=== PATIENT | female | born 1990 | race Caucasian/White ===

== ENCOUNTER 2018-01-30 09:43 | Emergency (ER) | payer OTHER ==
[2018-01-30 09:57] VITALS: BP 115/79
--- NOTE | 2018-01-30 10:49 | UC ---
Natali Chaves Jade, scribed for Yury Benavidez MD on 01/30/18 at 1013 . Complaint Female HPI - HPI Summary HPI Summary: Patient is a 27 y/o female who presents to [facility] c/o vaginal bleeding. She states the symptoms began 2 days ago, and include abdominal bloating/cramping, vaginal bleeding, and blood-tinged urine. Patient has had an IUD in place for 2 months, and her LKMP was approximately 1 month ago. She had a positive test at home, so is concerned about . The pain is described as a 6/10 in severity, and she states that medications make the pain better. Patient declined a pelvic exam because she is going to the ED. - History Of Current Complaint Chief Complaint: UCAbdominalPain Stated Complaint: VAGINAL BLEEDING Time Seen by Provider: 01/30/18 09:53 Hx Obtained From: Patient Hx Last Menstrual Period: last month Onset/Duration: Gradual Onset, Lasting Days - 2, Still Present Timing: Constant Severity Currently: Moderate Pain Intensity: 6 Pain Scale Used: 0-10 Numeric Character: Cramping Aggravating Factor(s): Nothing Alleviating Factor(s): Meds Associated Signs And Symptoms: Positive: Vaginal Bleeding/Discharge - Bleeding - Allergies/Home Medications Allergies/Adverse Reactions: Allergies Allergy/AdvReac Type Severity Reaction Status Date / Time No Known Allergies Allergy Verified 01/30/18 09:58 Home Medications: Home Medications Topiramate TAB(*) [Topamax 25 MG tab] 50 mg PO DAILY 01/30/18 [History Confirmed 01/30/18] PMH/Surg Hx/FS Hx/Imm Hx Endocrine History: Other Other Endocrine History: NEGATIVE: diabetes Cardiovascular History: Other Other Cardiovascular History: NEGATIVE: HTN - Surgical History Surgical History: Yes Surgery Procedure, Year, and Place: clavical repair - Family History Known Family History: Positive: Hypertension - Social History Alcohol Use: Occasionally Substance Use Type: Marijuana Smoking Status (MU): Never Smoked Tobacco Review of Systems Gastrointestinal: Abdominal Pain - Bloating, cramping Genitourinary: Hematuria, Abnormal Bleeding - Vaginal All Other Systems Reviewed And Are Negative: Yes Physical Exam - Summary Physical Exam Summary: VITAL SIGNS: Reviewed. GENERAL: Patient is a well-developed and nourished female who is lying comfortable in the stretcher. Patient is not in any acute respiratory distress. HEAD AND FACE: Normocephalic and atraumatic. EYES: PERRLA, EOMI x 2, No injected conjunctiva. EARS: Hearing grossly intact. Ear canals and tympanic membranes are WNL. MOUTH: Oropharynx within normal limits. NECK: Supple, trachea is midline, no adenopathy, no JVD. CHEST: Symmetric, no tenderness at palpation LUNGS: Clear to auscultation bilaterally. No wheezing or crackles. CVS: RRR, S1 and S2 present, no murmurs or gallops appreciated. ABDOMEN: Soft, non-tender. No signs of distention. Positive bowel sounds. No rebound no guarding, and no masses palpated. No abdominal bruit or pulsations. EXTREMITIES: FROM in all major joints, no edema, no cyanosis or clubbing. NEURO: Alert and oriented x 3. No acute neurological deficits. Speech is normal. SKIN: Dry and warm Triage Information Reviewed: Yes Vital Signs: Initial Vital Signs Temp 99 F 01/30/18 09:51 Pulse 88 01/30/18 09:51 Resp 18 01/30/18 09:51 BP 115/79 01/30/18 09:51 Pulse Ox 100 01/30/18 09:51 Vital Signs Reviewed: Yes Complaint Female Dx - Course Course Of Treatment: This patient presents to the urgent care with a chief complaint of vaginal bleeding. She reports that she is having vaginal bleeding , abdominal cramping, abdominal bloating and not feeling well. This morning she took a test and it was positive. She reports that she has an IUD for the last 2 months however, the test was positive. Patient declined a test since she already had one she prefers to do a blood test. Patient also declined pelvic exam, since the patient is going to the ER from ultrasound she reports that she wants to get only 1 pelvic exam and likely in the emergency department. Patient will be discharged to the emergency department. The patient declined ambulance transfer. - Differential Dx/Diagnosis Provider Diagnoses: Vaginal bleeding and . Abdominal pain. Discharge - Sign-Out/Discharge Documenting (check all that apply): Discharge/Admit/Transfer - Discharge Plan Condition: Stable Disposition: HOME Patient Education Materials: (ED), Acute Abdominal Pain (ED) Referrals: No Primary Care Phys,NOPCP [Primary Care Provider] - Additional Instructions: Patient will be discharged to the ED for further assessment. Patient declined ambulance - Billing Disposition and Condition Condition: STABLE Disposition: Home The documentation as recorded by the Natali jaramillo Jade accurately reflects the service I personally performed and the decisions made by , Yury Benavidez MD.
== END 2018-01-30 10:22 | disposition home or self-care (01) ==
LOC: UCEAST 09:43
DX: O46.90 Antepartum hemorrhage, unspecified, unspecified trimester (principal); O26.899 Other specified pregnancy related conditions, unspecified trimester; N93.9 Abnormal uterine and vaginal bleeding, unspecified; R10.9 Unspecified abdominal pain
CPT/HCPCS: 99201; G0463

== ENCOUNTER 2018-01-30 11:23 | Emergency (ER) | payer OTHER ==
[2018-01-30 11:53] LABS: ABS Basophils 0.1 10^3/ul (0-0.2); ABS Eosinophils 0.1 10^3/ul (0-0.6); ABS Lymphocytes 1.8 10^3/ul (1.0-4.8); ABS Monocytes 0.5 10^3/ul (0-0.8); ABS Neutrophils 3.8 10^3/ul (1.5-7.7); ABS Nucleated RBC 0 10^3/ul; Eosinophil % 1.8 % (0-6); Hematocrit 39 % (35-47); Lymphocyte % 28.2 % (25-47); Mean Corpuscular HGB Conc 34 g/dl (31-36); Mean Corpuscular Hemoglobin 30 pg (27-31); Mean Corpuscular Volume 90 fL (80-97); Mean Platelet Volume 9.6 um3 (7.4-10.4); Nucleated Red Blood Cells % 0.1; Platelet Count 237 10^3/ul (150-450); Red Blood Count 4.32 10^6/ul (4.00-5.40); Red Cell Distribution Width 14 % (10.5-15); White Blood Count 6.3 10^3/ul (3.5-10.8)
[2018-01-30 12:06] LABS: Urine Appearance Clear; Urine Blood 3+ (Negative); Urine Color Straw; Urine Ketones Negative (Negative); Urine Protein Negative (Negative); Urine Specific Gravity 1.006 (1.010-1.030); Urine Urobilinogen Negative (Negative)
[2018-01-30 12:10] LABS: EGFR Non-African American 97.9 (>60); INR 0.91 (0.77-1.02)
--- NOTE | 2018-01-30 15:17 | RAD ---
INDICATION: Pelvic pain. COMPARISON: There are no prior studies available for comparison. TECHNIQUE: Multiple real-time transvaginal images of the pelvis were obtained. FINDINGS: The uterus is normal in size, shape and echogenicity. The uterus measured 7.1 x 3.2 x 5.1 cm. The endometrial echo measured 0.3 cm in thickness. There is an IUD present which is low in position extending into the lower uterine segment and cervical region. The right ovary measured 7.0 x 7.9 x 6.7 cm. The left ovary measured 3.1 x 1.9 x 3.5 cm. There is vascular flow within both ovaries. There is a large slightly complex right ovarian cyst measuring 5.6 x 7.2 x 6.7 cm in size. There is a small amount of free intraperitoneal fluid in the cul-de-sac. IMPRESSION: 1. LARGE SLIGHTLY COMPLEX RIGHT OVARIAN CYST. RECOMMEND A FOLLOW-UP PELVIC ULTRASOUND IN 1-2 MONTHS TIME TO DEMONSTRATE RESOLUTION. 2. THE IUD IS LOW IN POSITION DESCRIBED.
[2018-01-30 15:49] VITALS: BP 118/79
--- NOTE | 2018-01-30 16:14 | ED ---
Milad Chaves Tariq, scribed for Douglas Nielsen MD on 01/30/18 at 1203 . Lower Extremity - HPI Summary HPI Summary: A 27 y/o female presents to ED c/o vaginal bleeding. Additionally c/o lower abdominal pain. According to the pt, she began bleeding approximately one week ago, with increasing blood discharge. She suspects it is a because a couple months ago she has a IUD placed for her menstrual cycle. She took a urine test this morning and it came up positive. She noted that she has never been before. As per triage, since placement of IUD, pt has had increased gas, changes in the frequency of urinations, vomiting and breast tenderness. Pt's blood type is A+ (A positive). - History of Current Complaint Chief Complaint: EDOBProblems Stated Complaint: +PREG/BLEEDING 1 WEEK-SENT [facility] Time Seen by Provider: 01/30/18 11:33 Hx Obtained From: Patient Hx Last Menstrual Period: last month Mechanism Of Injury: Other - Vaginal bleeding and pain Onset of Pain: Days - One week Onset/Duration: Weeks - One week Severity Initially: Moderate Severity Currently: Moderate Pain Intensity: 4 Pain Scale Used: 0-10 Numeric Associated Signs And Symptoms: Positive: Abdominal Pain - Lower abdominal pain, Other - Vaginal bleeding and pain Aggravating Factor(s): Nothing Alleviating Factor(s): Nothing Able to Bear Weight: Yes - Allergies/Home Medications Allergies/Adverse Reactions: Allergies Allergy/AdvReac Type Severity Reaction Status Date / Time No Known Allergies Allergy Verified 01/30/18 11:32 PMH/Surg Hx/FS Hx/Imm Hx Endocrine/Hematology History: Denies: Hx Diabetes Cardiovascular History: Denies: Hx Hypertension - Surgical History Surgery Procedure, Year, and Place: clavical repair Infectious Disease History: No Infectious Disease History: Denies: Traveled Outside the [place] in Last 30 Days - Family History Known Family History: Positive: Hypertension - Social History Alcohol Use: Occasionally Substance Use Type: Reports: Marijuana Smoking Status (MU): Never Smoked Tobacco Review of Systems Negative: Fever Positive: Abdominal Pain - Lower abdominal pain Positive: discharge - Vaginal bleeding, pain - Vaginal pain All Other Systems Reviewed And Are Negative: Yes Physical Exam - Summary Physical Exam Summary: Appearance: The patient is well-nourished in no acute distress and in no acute pain. Skin: The skin is warm and dry and skin color reflects adequate perfusion. HEENT: The head is normocephalic and atraumatic. The pupils are equal and reactive. The conjunctivae are clear and without drainage. Nares are patent and without drainage. Mouth reveals moist mucous membranes and the throat is without erythema and exudate. The external ears are intact. The ear canals are patent and without drainage. The tympanic membranes are intact. Neck: The neck is supple with full range of motion and non-tender. There are no carotid bruits. There is no neck vein distension. Respiratory: Chest is non-tender. Lungs are clear to auscultation and breath sounds are symmetrical and equal. Cardiovascular: Heart is regular rate and rhythm. There is no murmur or rub auscultated. There is no peripheral edema and pulses are symmetrical and equal. Abdomen: Mild tenderness in suprapublic region. There are normal bowel sounds heard in all four quadrants and there is no organomegaly palpated. Musculoskeletal: There is no back tenderness noted. Extremities are non-tender with full range of motion. There is good capillary refill. There is no peripheral edema or calf tenderness elicited. Neurological: Patient is alert and oriented to person, place and time. The patient has symmetrical motor strength in all four extremities. Cranial nerves are grossly intact. Deep tendon reflexes are symmetrical and equal in all four extremities. Psychiatric: The patient has an appropriate affect and does not exhibit any anxiety or depression. Triage Information Reviewed: Yes Vital Signs On Initial Exam: Initial Vitals Temp Pulse Resp BP Pulse Ox 98.5 F 90 16 109/64 100 01/30/18 11:28 01/30/18 11:28 01/30/18 11:28 01/30/18 11:28 01/30/18 11:28 Vital Signs Reviewed: Yes Diagnostics - Vital Signs Vital Signs Temp Pulse Resp BP Pulse Ox 01/30/18 11:47 80 98 01/30/18 11:44 126/83 01/30/18 11:28 98.5 F 90 16 109/64 100 - Laboratory Lab Results: Lab Results 01/30/18 Range/Units 11:45 WBC 6.3 (3.5-10.8) 10^3/ul RBC 4.32 (4.00-5.40) 10^6/ul Hgb 13.0 (12.0-16.0) g/dl Hct 39 (35-47) % MCV 90 (80-97) fL MCH 30 (27-31) pg MCHC 34 (31-36) g/dl RDW 14 (10.5-15) % Plt Count 237 (150-450) 10^3/ul MPV 9.6 (7.4-10.4) um3 Neut % (Auto) 60.5 (38-83) % Lymph % (Auto) 28.2 (25-47) % [place] % (Auto) 8.6 H (0-7) % Eos % (Auto) 1.8 (0-6) % Baso % (Auto) 0.9 (0-2) % Absolute Neuts (auto) 3.8 (1.5-7.7) 10^3/ul Absolute Lymphs (auto) 1.8 (1.0-4.8) 10^3/ul Absolute Monos (auto) 0.5 (0-0.8) 10^3/ul Absolute Eos (auto) 0.1 (0-0.6) 10^3/ul Absolute Basos (auto) 0.1 (0-0.2) 10^3/ul Absolute Nucleated RBC 0 10^3/ul Nucleated RBC % 0.1 Result Diagrams: 01/30/18 11:45 01/30/18 11:45 Lab Statement: Any lab studies that have been ordered have been reviewed, and results considered in the medical decision making process. - Ultrasound No standard instances Ultrasound Interpretation Completed By: Radiologist - TRANSVAGINAL US: 1. LARGE SLIGHTLY COMPLEX RIGHT OVARIAN CYST. RECOMMEND A FOLLOW-UP PELVIC ULTRASOUND IN 1-2 MONTHS TIME TO DEMONSTRATE RESOLUTION. 2. THE IUD IS LOW IN POSITION DESCRIBED. ED PHYSICIAN REVIEWED THIS RADIOLOGY REPORT. Re-Evaluation - Re-Evaluation First Eval Re-Evaluation Time: 12:38 Comment: DISCUSSED PLAN WITH PATIENT Second Eval Re-Evaluation Time: 15:36 Comment: DISCUSSED DISCHARGE WITH PATIENT. PATIENT DOES NOT WANT ANY PAIN MEDICATION. Lower Extremity Course/Dx - Course Course Of Treatment: Ms. Mccain presented with mild crampy lower abdominal pain and some minor bleeding over the past several days. She states that she sees blood when she wipes etc. She took a home urine test that was positive. She had an IUD placed 2 months ago. Labs were within normal limits here including a negative serum hCG. Ultrasound shows that her IUD is situated low and also that she has a complex ovarian cyst. I recommended follow-up with her [employer] physician in the next few days. - Diagnoses Provider Diagnoses: Pelvic pain, Ovarian cyst - Physician Notifications Discussed Care Of Patient With: Suzy Lake - [employer]CH[employer] Time Discussed With Above Provider: 13:10 Discharge - Sign-Out/Discharge Documenting (check all that apply): Discharge/Admit/Transfer - DISCHARGE - Discharge Plan Condition: Stable Disposition: HOME Patient Education Materials: Ovarian Cyst (ED), Pelvic Pain in Women (ED) Referrals: [facility] PHYSICIAN REFERRAL [Outside] No Primary Care Phys,NOPCP [Primary Care Provider] - Suzy Lake MD [Medical Doctor] - As Soon As Possible (FOLLOW UP WITH S[employer] ARCHITECT THIS WEEK.) Additional Instructions: RETURN TO ED FOR ANY NEW OR WORSENING SYMPTOMS. - Billing Disposition and Condition Condition: STABLE Disposition: Home The documentation as recorded by the Milad jaramillo Tariq accurately reflects the service I personally performed and the decisions made by me, Douglas Nielsen MD.
== END 2018-01-30 15:48 | disposition home or self-care (01) ==
LOC: ED 11:23
DX: R10.2 Pelvic and perineal pain (principal); N83.209 Unspecified ovarian cyst, unspecified side; R10.30 Lower abdominal pain, unspecified; N93.9 Abnormal uterine and vaginal bleeding, unspecified
CPT/HCPCS: 36415; 76830; 80053; 81003; 81015; 83605; 84702; 85025; 85610; 85730; 86850; 86900; 86901; 99282